=== PATIENT | male | born 1980 | race Caucasian/White ===

== ENCOUNTER 2016-05-16 12:00 | Day surgery (SDC) | payer OTHER ==
[2016-05-11 12:49] LABS: HEMATOCRIT 46.1 % (40.0-51.0); HEMOGLOBIN 15.5 g/dL (13.6-17.8)
[2016-05-11 12:54] LABS: PARTIAL THROMBO TIME 28.5 SEC (22.5-37.2)
[~2016-05-16 12:00] MED LIST: *DENIES; ABILIFY10 PO; ATV1 PO; LEXAPRO10 PO; WELLXL300 PO
== END 2016-05-16 18:18 | disposition home or self-care (01) ==
LOC: SDC 12:00
PROVIDERS: Otolaryngology
PROC: 09QK0ZZ Repair Nasal Mucosa and Soft Tissue, Open Approach (ICD-10-PCS; principal; 2016-05-16 13:15)
DX: J34.89 Other specified disorders of nose and nasal sinuses (principal); Z98.890 Other specified postprocedural states; F41.9 Anxiety disorder, unspecified; F31.9 Bipolar disorder, unspecified
CPT/HCPCS: 85014; 85018; 85610; 85730; 88300; A9270-GY; J0690; J1170; J2250; J2270; J2405; J2710; J3010